=== PATIENT | male | born 1980 | race African-American/Black ===

== ENCOUNTER 2016-05-24 14:36 | Inpatient (IN) | payer OTHER ==
[~2016-05-24] VITALS: Ht 180.3 cm; Wt 122.7 kg
--- NOTE | ~2016-05-24 | EKG ---
[address] [place] [address] ELECTROCARDIOGRAM REPORT Name: MIKE CHILD Room #: 203-P ADM IN M.R.#: [id number] Admission: 05/24/16 Attend Phys: Blake Tubbs MD Discharge: Date of : 82 Report #: [id number] THIS REPORT FOR: //name// [facility] Test Date: 2016-05-26 Test Time: 12:43:26 Pat Name: MIKE CHILD Department: Room: 203 P Gender: M Production Manager: Leo HSU : 1980 Requested By: Arik Groves Order Number: [id number] MD: Ed Charles Measurements Intervals [place] Rate: 58 P: 46 SD: 160 QRS: 28 QRSD: 94 T: 6 QT: 434 QTc: 427 Interpretive Statements Sinus rhythm Nonspecific T abnormalities, diffuse leads Compared to ECG 05/25/2016 07:00:02 No significant changes Electronically Signed On 05-27-2016 7:48:51 CDT by Ed Charles [email or web address] <ELECTRONICALLY SIGNED> By: Ed Charles MD, [facility] 05/27/16 0748 1243 42 Ed Charles MD, [facility] /EPI
--- NOTE | ~2016-05-24 | EKG ---
[address] [place] [address] ELECTROCARDIOGRAM REPORT Name: MIKE CHILD Room #: 203-P ADM IN M.R.#: [id number] Admission: 05/24/16 Attend Phys: Blake Tubbs MD Discharge: Date of : 82 Report #: [id number] THIS REPORT FOR: //name// [facility] Test Date: 2016-05-25 Test Time: 07:00:02 Pat Name: MIKE CHILD Department: Room: 203 P Gender: M Utilization Review Specialist: fredrick : 1980 Requested By: Arik Groves Order Number: [id number] MD: Ed Charles Measurements Intervals [place] Rate: 80 P: 39 DC: 147 QRS: 39 QRSD: 89 T: 42 QT: 392 QTc: 453 Interpretive Statements Sinus rhythm Borderline T wave abnormalities Baseline wander in lead(s) V3 No previous ECG available for comparison Electronically Signed On 05-25-2016 7:49:41 CDT by Ed Charles [email or web address] <ELECTRONICALLY SIGNED> By: Ed Charles MD, [facility] 05/25/16 0749 9 9 Ed Charles MD, [facility] /EPI
--- NOTE | ~2016-05-24 | HC ---
[facility] [place] [address] CONSULTATION Name: MIKE CHILD Room #: 203-P [facility] IN M.R.#: [id number] Admission: 05/24/16 Attend Phys: Blake Tubbs MD Discharge: 05/27/16 Date of : 82 Report #: [id number] THIS REPORT FOR: //name// CC: [facility] physician/PCP Blake Tubbs REASON FOR THE PRESENTATION: Chest pain. REASON FOR CONSULTATION: Elevated creatinine. HISTORY OF PRESENT ILLNESS: This is a 36-year-old who presented to the hospital with no specific symptoms including chest pain. He has a normal kidney function. He admitted to cocaine abuse and marijuana abuse. On presentation to the emergency room, he was found to have an elevated ST on the EKG with elevated troponins. He was admitted as a case of possible pericarditis even though the echo did not reveal any evidence of pericardial effusion. He was started on ibuprofen and after starting him on ibuprofen, his creatinine has gone up significantly to peak of 1.9. He is not known to have any previous medical problems including diabetes mellitus. He does know about history of hypertension. He was taking ibuprofen every once in a while as an outpatient. PAST MEDICAL HISTORY: NA. PAST SURGICAL HISTORY: None. MEDICATIONS: Included IBUPROFEN. REVIEW OF SYSTEMS: GENERAL: No fever or chills. CARDIOVASCULAR: As per the history of present illness. PULMONARY: No cough or hemoptysis. GASTROINTESTINAL: No nausea or vomiting. GENITOURINARY: No frequency or urgency. MUSCULOSKELETAL: No back pain. No muscle stiffness. NEUROLOGICAL: No headache, no dizziness. FAMILY HISTORY: Significant for coronary artery disease. PHYSICAL EXAMINATION: GENERAL: He was alert, oriented, in no apparent distress. VITAL SIGNS: Blood pressure was 150/80. He was afebrile. HEAD AND NECK: No jugular venous distention, no bruit, no thyromegaly. CHEST: Clear to auscultation bilaterally. CARDIOVASCULAR: No rub detected. ABDOMEN: Soft, nontender with no hepatosplenomegaly. LOWER EXTREMITIES: No edema with intact peripheral pulses. [facility] [address] [place] [address] CONSULTATION Name: MIKE CHILD Room #: 203-P [facility] IN ..#: [id number] Admission: 05/24/16 Attend Phys: Blake Tubbs MD Discharge: 05/27/16 Date of : 82 Report #: [id number] LABORATORY VALUES: As I have stated, his creatinine has peaked 1.9. Troponins were marginally elevated with a peak of . Chest x-ray reviewed. ASSESSMENT, IMPRESSION AND PLAN: 1. Acute kidney injury. 2. Drug abuse 3. Elevated troponins. 4. His acute kidney injury is well explained by the use of nonsteroidal anti-inflammatory medications. As for now, we will stop those. We could use steroids for his possible pericarditis. 5. I would also recommend to stop PPI since the JOHNNA also coincides with the the PPI. 6. Expect him to fully recover. 7. Continue IV fluids. <ELECTRONICALLY SIGNED> By: Gia Teresa MD 05/28/16 0824 0701 1104 Gia Teresa MD /nt
--- NOTE | ~2016-05-24 | EKG ---
[address] [address] ELECTROCARDIOGRAM REPORT Name: MIKE CHILD Room #: 203-P ADM IN M.R.#: [id number] Admission: 05/24/16 Attend Phys: Blake Tubbs MD Discharge: Date of : 82 Report #: [id number] THIS REPORT FOR: //name// [facility] ED Test Date: 2016-05-24 Test Time: 17:00:19 Pat Name: MIKE CHILD Department: Room: [facility] Gender: M Sales Branch Manager: MZOOK : 1980 Requested By: Tristan Longoria Order Number: [id number] MD: Ed Charles Measurements Intervals [place] Rate: 63 P: 38 [place]: 150 QRS: 34 QRSD: 87 T: 58 QT: 418 QTc: 428 Interpretive Statements Sinus rhythm ST elevation suggests acute pericarditis No previous ECG available for comparison Electronically Signed On 05-25-2016 7:39:58 CDT by Ed Charles [email or web address] <ELECTRONICALLY SIGNED> By: Ed Charles MD, [facility] 05/25/16 0739 99 99 Ed Charles MD, [facility] /EPI
--- NOTE | ~2016-05-24 | EKG ---
[address] [address] ELECTROCARDIOGRAM REPORT Name: MIKE CHILD Room #: 203-P ADM IN M.R.#: [id number] Admission: 05/24/16 Attend Phys: Blake Tubbs MD Discharge: Date of : 82 Report #: [id number] THIS REPORT FOR: //name// [facility] ED Test Date: 2016-05-24 Test Time: 14:45:45 Pat Name: MIKE CHILD Department: Room: [facility] Gender: M Paleologist: cy strickland : 1980 Requested By: Connor Paniagua Order Number: [id number] MD: Ed Charles Measurements Intervals [place] Rate: 89 P: 36 [place]: 147 QRS: 33 QRSD: 90 T: 54 QT: 392 QTc: 477 Interpretive Statements Sinus rhythm Borderline prolonged QT interval No previous ECG available for comparison Electronically Signed On 05-25-2016 7:38:50 CDT by Ed Charles [email or web address] <ELECTRONICALLY SIGNED> By: Ed Charles MD, [facility] 05/25/16 0738 D: [id number] Ed Charles MD, [facility] /EPI
--- NOTE | ~2016-05-24 | 2DMMODE ---
[facility] [place] [place] [address] [place] [address] 2 D/M-MODE ECHOCARDIOGRAM Name: MIKE CHILD Room #: 203-P [facility] IN ..#: [id number] Admission: 05/24/16 Attend Phys: Blaek Tubbs, Discharge: Date of : 82 Date of Service: 05/25/16 1045 Report #: [id number] THIS REPORT FOR: //name// APPROVED REPORT Study performed: 05/25/2016 10:01:26 EXAM: Comprehensive 2D, Doppler, and color-flow Echocardiogram Patient Location: Echo lab Blood Pressure: 147/96 mmHg HR: 66 bpm Other Information Study Quality: Good Indications Pericarditis Chest Pain 2D Dimensions RVDd: 36.15 mm LVEF(%): 55.28 (>50%) IVSd: 9.99 (7-11mm) LVOT Diam: 18.57 (18-24mm) LVDd: 51.22 mm PWd: 10.80 (7-11mm) Ascending Aorta: 31.22 mm LVDs: 36.41 (25-40mm) IVC: 16.00 mm Aortic Root: 31.76 mm Shepard's LVEF: 55.28 % Volumes Left Atrial Volume (Systole) Single Plane 4CH: 57.64 mL Single Plane 2CH: 43.37 mL LA ESV Index: 24.00 mL/m2 Aortic Valve AoV Peak Azael.: 1.45 m/s AO Peak Gr.: 8.36 mmHg LV Max P.24 mmHg LV Max: 1.03 m/s Mitral Valve MV PHT: 60.83 ms MV E Max Azael.: 0.71 m/s E/A Ratio: 1.0 MV A Azael.: 0.71 m/s MV Decel. Time: 209.[address] [facility] [place] [address] 2 D/M-MODE ECHOCARDIOGRAM Name: MIKE CHILD Room #: 203-P [facility] IN M.R.#: [id number] Admission: 05/24/16 Attend Phys: Blake Tubbs, Discharge: Date of : 82 Date of Service: 05/25/16 1045 Report #: [id number] Pulmonary Valve PV Peak Azael.: 1.02 m/s PV Peak Gr.: 4.18 mmHg Tricuspid Valve TR Peak Azael.: 3.02 m/s RAP Estimate: 5.00 mmHg TR Peak Gr.: 36.55 mmHg Left Ventricle The left ventricle is normal size. There is normal LV segmental wall motion. There is normal left ventricular wall thickness. Left ventricular systolic function is normal. The left ventricular ejection fraction is within the normal range. LVEF is 55-60%. Grade I diastolic dysfunction Right Ventricle The right ventricle is normal size. The right ventricular systolic function is normal. Atria The left atrium size is normal. The right atrium size is normal. Aortic Valve The aortic valve is normal in structure. No aortic regurgitation is present. There is no aortic valvular stenosis. Mitral Valve The mitral valve is normal in structure. There is no mitral valve regurgitation noted. Tricuspid Valve The tricuspid valve is normal in structure. There is trace tricuspid regurgitation. The right atrial pressure is estimated at 5 mmHg. There is mild pulmonary hypertension. The estimated PAP was 40 mmHg. Pulmonic Valve The pulmonary valve is normal in structure. There is no pulmonic valvular regurgitation. Great Vessels The aortic root is normal in size. IVC is normal in size and collapses >50% [place] [address] 2 D/M-MODE ECHOCARDIOGRAM Name: MIKE CHILD Room #: 203-P [facility] IN .R.#: [id number] Admission: 05/24/16 Attend Phys: Blake Tubbs, Discharge: Date of : 82 Date of Service: 05/25/16 1045 Report #: [id number] There is no pericardial effusion. <Conclusion> Left ventricular systolic function is normal. There is normal LV segmental wall motion. LVEF 55-60%. Grade I diastolic dysfunction The aortic valve is normal in structure. No aortic stenosis or insufficiency. The mitral valve is normal in structure. No mitral valve regurgitation noted. There is mild pulmonary hypertension. The estimated PAP was 40 mmHg. There is no pericardial effusion. <ELECTRONICALLY SIGNED> By: Ed Charles MD, [facility] 05/25/16 1045 1045 1045 Ed Charles MD, [facility] /INF
[~2016-05-24 14:36] MED LIST: IBUPROFEN 800800 MG PO; PRILOSEC40 MG PO
[2016-05-24 14:37] VITALS: BP 157/96
[2016-05-24 15:28] LABS: AMP/METHAMP Negative (Negative); BARBITURATES Negative (Negative); BENZODIAZEPINES Negative (Negative); COCAINE POSITIVE (Negative); METHADONE Negative (Negative); OPIATES Negative (Negative); PCP Negative (Negative); THC POSITIVE (Negative)
[2016-05-24 15:58] LABS: HEMATOCRIT 45.6 % (42.0-52.0); HEMOGLOBIN 15.7 gm/dL (14.0-18.0); MCHC 34.5 g/dL (28.0-37.0); MCV 95.5 fL (80.0-100.0); PLATELET COUNT 211 thou/uL (150-400); RBC 4.78 mil/uL (4.50-6.00); RDW 12.3 % (10.5-14.5); WBC 10.9 thou/uL (4.0-11.0)
[2016-05-24 16:04] LABS: MANUAL DIFF YES
[2016-05-24 16:17] LABS: CALCIUM 8.5 mg/dL (8.5-10.1); CREATININE 1.2 mg/dL (0.7-1.3); POTASSIUM 3.6 mmol/L (3.5-5.1)
[2016-05-24 16:25] LABS: ABSOLUTE NEUTROPHILS 8.9 thou/uL (1.4-8.2); TOTAL CELL COUNT 100
[2016-05-24 16:29] LABS: TROPONIN-I 0.09 ng/mL (<0.04-0.07)
[2016-05-24 18:19] VITALS: BP 143/105
[2016-05-24 20:00] VITALS: BP 154/92
[2016-05-24 23:33] VITALS: BP 136/84
[2016-05-24 23:57] LABS: ALBUMIN 3.6 g/dL (3.4-5.0); CALCIUM 8.4 mg/dL (8.5-10.1); CREATININE 1.4 mg/dL (0.7-1.3); POTASSIUM 4.1 mmol/L (3.5-5.1); TOTAL BILIRUBIN 0.9 mg/dL (<0.1-1.0); TOTAL PROTEIN 7.1 g/dL (6.4-8.2)
[2016-05-25 00:35] LABS: HIV-1 P24 AG Nonreactive (Nonreactive)
[2016-05-25 00:58] LABS: ALBUMIN 3.5 g/dL (3.4-5.0); CALCIUM 8.5 mg/dL (8.5-10.1); CREATININE 1.4 mg/dL (0.7-1.3); POTASSIUM 4.1 mmol/L (3.5-5.1); TOTAL BILIRUBIN 0.9 mg/dL (<0.1-1.0); TOTAL PROTEIN 7.4 g/dL (6.4-8.2)
[2016-05-25 03:08] VITALS: BP 147/96
[2016-05-25 04:25] LABS: HEMATOCRIT 40.5 % (42.0-52.0); MCH 32.5 pg (26.0-34.0); MCHC 33.6 g/dL (28.0-37.0); RBC 4.17 mil/uL (4.50-6.00); RDW 12.3 % (10.5-14.5); WBC 11.2 thou/uL (4.0-11.0)
[2016-05-25 04:31] LABS: HEMOGLOBIN 13.6 gm/dL (14.0-18.0)
[2016-05-25 04:39] LABS: ALBUMIN 3.4 g/dL (3.4-5.0); ALKALINE PHOSPHATASE 46 U/L (46-116); ANION GAP 8 mmol/L (7-16); BUN 12 mg/dL (7-18); CALCIUM 8.4 mg/dL (8.5-10.1); CHLORIDE 106 mmol/L (98-107); CO2 28 mmol/L (21-32); CREATININE 1.5 mg/dL (0.7-1.3); GLUCOSE 107 mg/dL (74-106); POTASSIUM 3.6 mmol/L (3.5-5.1); SGOT 38 U/L (15-37); SGPT 53 U/L (30-65); SODIUM 142 mmol/L (136-145); TOTAL BILIRUBIN 0.9 mg/dL (<0.1-1.0); TOTAL PROTEIN 6.9 g/dL (6.4-8.2)
[2016-05-25 08:15] VITALS: BP 130/84
[2016-05-25 08:59] LABS: CHOLESTEROL 252 mg/dL (<200); HDL CHOLESTEROL 39 mg/dL (>40); LDL CHOLESTEROL 189 mg/dL (<100); TC:HDL 6.5 Ratio (Not establshd); TRIGLYCERIDE 121 mg/dL (<150); VLDL 24 mg/dL (<40)
[2016-05-25 11:44] VITALS: BP 160/100
[2016-05-25 15:19] VITALS: BP 135/86
[2016-05-25 19:53] VITALS: BP 159/84
[2016-05-26 03:37] VITALS: BP 140/72
[2016-05-26 06:56] LABS: HEMATOCRIT 37.5 % (42.0-52.0); HEMOGLOBIN 12.8 gm/dL (14.0-18.0); MCH 32.9 pg (26.0-34.0); MCHC 34.2 g/dL (28.0-37.0); MCV 96.1 fL (80.0-100.0); RBC 3.9 mil/uL (4.50-6.00); RDW 12.2 % (10.5-14.5); WBC 8.6 thou/uL (4.0-11.0)
[2016-05-26 07:13] LABS: CREATININE 1.9 mg/dL (0.7-1.3); POTASSIUM 3.2 mmol/L (3.5-5.1)
[2016-05-26 07:18] LABS: TROPONIN-I 1.94 ng/mL (<0.04-0.07)
[2016-05-26 07:33] VITALS: BP 150/81
[2016-05-26 10:32] LABS: ALBUMIN 3.1 g/dL (3.4-5.0); CALCIUM 8.5 mg/dL (8.5-10.1); PHOSPHORUS 2.9 mg/dL (2.5-4.9); POTASSIUM 3.3 mmol/L (3.5-5.1)
[2016-05-26 11:22] VITALS: BP 143/88
[2016-05-26 15:47] VITALS: BP 172/110
[2016-05-26 20:42] VITALS: BP 139/83
[2016-05-27 03:35] VITALS: BP 200/146
[2016-05-27 04:28] LABS: CALCIUM 8.1 mg/dL (8.5-10.1); CREATININE 1.8 mg/dL (0.7-1.3); PHOSPHORUS 2.2 mg/dL (2.5-4.9); POTASSIUM 3.1 mmol/L (3.5-5.1)
[2016-05-27 07:40] VITALS: BP 185/106
[2016-05-27 11:15] VITALS: BP 202/112
[2016-05-27 11:18] VITALS: BP 202/112
[2016-05-27] MEDS ORDERED: METOPROLOL SUCC50 MG PO (11:46)
[2016-05-29 12:46] LABS: NIL (NEGATIVE) CONTROL SPOT CT 0; PANEL A SPOT CT 0; PANEL B SPOT CT 0; POSITIVE CONTROL SPOT COUNT > 20; T-SPOT.TB Negative
== END 2016-05-27 13:15 | disposition home or self-care (01) | DRG 315 ==
LOC: ER 14:36 → 2N 16:46 → EROBS 16:46 → 2N 18:21
PROVIDERS: Hospitalist; Internal Medicine; Nurse Practitioner
DX: I31.9 Disease of pericardium, unspecified (principal); N17.9 Acute kidney failure, unspecified; I47.2 Ventricular tachycardia; F17.210 Nicotine dependence, cigarettes, uncomplicated; F14.10 Cocaine abuse, uncomplicated; F12.10 Cannabis abuse, uncomplicated; R79.89 Other specified abnormal findings of blood chemistry; T39.395A Adverse effect of other nonsteroidal anti-inflammatory drugs [NSAID], initial encounter; T36.8X5A Adverse effect of other systemic antibiotics, initial encounter; I10 Essential (primary) hypertension; Z71.51 Drug abuse counseling and surveillance of drug abuser; Z71.6 Tobacco abuse counseling; Z82.49 Family history of ischemic heart disease and other diseases of the circulatory system; Y92.89 Other specified places as the place of occurrence of the external cause; Z79.1 Long term (current) use of non-steroidal anti-inflammatories (NSAID)
CPT/HCPCS: 10081